=== PATIENT | male | born 1965 | race African-American/Black ===

== ENCOUNTER 2016-06-18 22:33 | Inpatient (IN) | payer SELFPAY ==
[~2016-06-18] VITALS: Ht 175.3 cm; Wt 111.1 kg
[~2016-06-18 22:33] MED LIST: ALBU90AE IH; AMLO10TA80 PO; BLOO-340 MC; FURO40TA5 PO; GLIM4TAB2 PO; IBUP-2029 PO; INSLAN SUBCUT; ISOS1TAB PO; LISI-604 PO; METF-246 PO; SYRI-219 INJ
[2016-06-19] MEDS ORDERED: ACETAMINOPHEN 325MG TABLET PO ONE (00:15)
[2016-06-19 00:33] LABS: BASOPHILS % 0.5 % (0.0-2.0); EOSINOPHILS % 1.3 % (0.0-5.0); HEMATOCRIT. 35.2 % (42.0-52.0); HEMOGLOBIN. 11.7 g/dL (14.0-18.0); LYMPHOCYTES % 16.2 % (20.0-50.0); MEAN CORPUSCULAR HEMOGLOBIN 28.4 pg (28.0-32.0); MEAN CORPUSCULAR HGB CONC 33.3 g/dL (31.0-37.0); MEAN CORPUSCULAR VOLUME 85.4 fL (80.0-94.0); MEAN PLATELET VOLUME 7.9 fl (7.4-10.4); MONOCYTES % 14.8 % (2.0-8.0); NEUTROPHILS % 67.2 % (40.0-76.0); PLATELET 145 x1000/uL (130-400); RED BLOOD CELL COUNT 4.11 mill/uL (4.7-6.1); WHITE BLOOD COUNT 8.5 x1000/uL (4.5-11.0)
[2016-06-19 00:39] LABS: CHLORIDE 103 mEq/L (98-107); INDEX HEMOLYSI 1 (1-3); INDEX ICTERIC 1 (1-4); INDEX LIPEMIC 1 (1-3)
[2016-06-19 00:42] LABS: ALBUMIN 2.8 g/dL (3.4-5.0); ANION GAP 12; CALCIUM 8.5 mg/dL (8.5-10.1); CARBON DIOXIDE 27 mEq/L (21-32)
[2016-06-19 00:46] LABS: ALANINE AMINOTRANSFERASE 24 IU/L (13-61); UREA NITROGEN BLOOD 16 mg/dL (7-21)
[2016-06-19 00:48] LABS: eGFR > 60 mL/min (>60)
[2016-06-19] MEDS ORDERED: ASPIRIN 325MG EC TABLET PO ONE (01:15)
[2016-06-19] MEDS ORDERED: SODIUM CHLORIDE 0.9% 1000ML BAG (SEPSIS BOLUS) IV ONE (01:15)
[2016-06-19] MEDS ORDERED: LEVOFLOXACIN 750MG PREMIX 150 ML IV ONE (01:15)
[2016-06-19] MEDS ORDERED: ONDANSETRON HCL 4MG/2ML VIAL IV PRN (01:30)
[2016-06-19] MEDS ORDERED: IPRATROPIUM/ALBUTEROL 0.5-3(2.5)MG/3ML NEB INH PRN (01:30)
[2016-06-19] MEDS ORDERED: MORPHINE SULFATE 2 MG/ML CPJ (NOT FOR IM USE) IV PRN (01:30)
[2016-06-19] MEDS ORDERED: CLONIDINE 0.1MG TABLET PO PRN (01:30)
[2016-06-19] MEDS ORDERED: ACETAMINOPHEN 325MG TABLET PO PRN (01:30)
[2016-06-19 01:31] LABS: CLARITY URINE CLEAR (CLEAR); COLOR URINE DARK YELLOW (YELLOW); GLUCOSE URINE NEGATIVE (NEGATIVE); KETONES URINE 1+ (NEGATIVE); LEUKOCYTE ESTERASE URINE NEGATIVE (NEGATIVE); NITRITE URINE NEGATIVE (NEGATIVE); OCCULT BLOOD URINE NEGATIVE (NEGATIVE); PH URINE 5.5 (4.5-8.0); PROTEIN URINE 2+ (NEGATIVE); SPECIFIC GRAVITY URINE 1.026 (1.005-1.030)
[2016-06-19 01:37] LABS: TROPONIN I 0.04 ng/mL (0.00-0.04)
[2016-06-19] MEDS ORDERED: FUROSEMIDE 40MG/4ML VIAL IVP ONE (02:00)
[2016-06-19] MEDS ORDERED: POTASSIUM CHLORIDE 20MEQ TABLET SR PO ONE (02:15)
[2016-06-19] MEDS ORDERED: POTASSIUM CHLORIDE 20MEQ TABLET SR PO NR ×2 (02:49→12:20)
[2016-06-19 02:58] LABS: BACTERIA URINE 1+; RBC URINE NONE SEEN /hpf (0-2); SQUAMOUS EPITHELIAL CELL URINE RARE /lpf (RARE/1+); WBC URINE NONE SEEN /hpf (0-2)
[2016-06-19 08:29] LABS: HEMATOCRIT. 36.8 % (42.0-52.0); HEMOGLOBIN. 12.4 g/dL (14.0-18.0); MEAN CORPUSCULAR HEMOGLOBIN 28.5 pg (28.0-32.0); MEAN CORPUSCULAR HGB CONC 33.8 g/dL (31.0-37.0); MEAN CORPUSCULAR VOLUME 84.4 fL (80.0-94.0); MEAN PLATELET VOLUME 7.8 fl (7.4-10.4); PLATELET 154 x1000/uL (130-400); RED BLOOD CELL COUNT 4.36 mill/uL (4.7-6.1); RED CELL DISTRIBUTION WIDTH 13.6 % (11.6-14.6); WHITE BLOOD COUNT 8.1 x1000/uL (4.5-11.0)
[2016-06-19 08:34] LABS: CHLORIDE 102 mEq/L (98-107); DIFFERENTIAL COMMENT 1; INDEX HEMOLYSI 1 (1-3); INDEX ICTERIC 1 (1-4); INDEX LIPEMIC 1 (1-3)
[2016-06-19 08:38] LABS: ANION GAP 9; CALCIUM 8.4 mg/dL (8.5-10.1); CARBON DIOXIDE 31 mEq/L (21-32); UREA NITROGEN BLOOD 16 mg/dL (7-21)
[2016-06-19 08:41] LABS: LDL CHOLESTEROL 116 mg/dL (5-100); TRIGLYCERIDE 75 mg/dL (0-150); eGFR > 60 mL/min (>60)
[2016-06-19 08:42] LABS: HDL CHOLESTEROL 37 mg/dL (40-59)
[2016-06-19] MEDS ORDERED: ISOSORB DINIT/HYDRALAZINE HCL 20/37.5MG TABLET PO SCH (09:00)
[2016-06-19] MEDS ORDERED: FUROSEMIDE 40MG/4ML VIAL IVP SCH (09:00)
[2016-06-19] MEDS ORDERED: INSULIN GLARGINE HUM REC ANLOG 16 UNIT SUBCUT SCH (09:00)
[2016-06-19 09:35] LABS: *AMPHETAMINES SCREEN URINE NEGATIVE (NEGATIVE); *BARBITURATES SCREEN URINE NEGATIVE (NEGATIVE); *BENZODIAZEPINES SCREEN URINE NEGATIVE (NEGATIVE); *COCAINE SCREEN URINE NEGATIVE (NEGATIVE); CANNABINOID URINE SCREEN NEGATIVE (NEGATIVE); ECSTASY MDMA SCREEN URINE NEGATIVE (NEGATIVE); METHADONE URINE SCREEN NEGATIVE (NEGATIVE); OPIATES URINE SCREEN NEGATIVE (NEGATIVE); PHENCYCLIDINE URINE SCREEN NEGATIVE (NEGATIVE)
[2016-06-19 10:07] LABS: PLATELET ESTIMATE NORMAL
[2016-06-19] MEDS ORDERED: DEXTROSE 50% WATER 50ML SYRINGE IV PRN (13:00)
[2016-06-19 13:58] VITALS: BP 159/103
[2016-06-19] MEDS: GLIMEPIRIDE 4MG TABLET PO SCH (15:09)
[2016-06-19] MEDS: LISINOPRIL 20MG TABLET PO SCH ×2 (15:09→21:20)
[2016-06-19] MEDS: AMLODIPINE 10MG TABLET PO SCH (15:09)
[2016-06-19] MEDS: INSULIN DETEMIR UD 100 UNITS/ML SYR SUBCUT SCH (15:12)
[2016-06-19] MEDS: FUROSEMIDE 40MG/4ML VIAL IVP SCH (15:13)
[2016-06-19] MEDS: ENOXAPARIN 40MG/0.4ML SYR SUBCUT SCH (15:28)
[2016-06-19 15:45] LABS: CREATINE KINASE MB FRACTION 1.2 ng/mL (0.5-3.6); TROPONIN I 0.02 ng/mL (0.00-0.04)
[2016-06-19 16:14] VITALS: BP 148/98
[2016-06-19] MEDS: IPRATROPIUM/ALBUTEROL 0.5-3(2.5)MG/3ML NEB HHN SCH ×2 (16:55→20:00)
[2016-06-19] MEDS: INSULIN LISPRO 100 UNITS/ML SUBCUT SCH ×2 (17:14→21:00)
[2016-06-19] MEDS: BLOOD SUGAR DIAGNOSTIC STRIP TEST SCH ×2 (17:14→21:19)
[2016-06-19] MEDS ORDERED: INFLUENZA VIRUS VACCINE 0.5ML SYR IM ONE (17:30)
[2016-06-19] MEDS ORDERED: PNEUMOCOCCAL 23-VAL P-SAC VAC 0.5 ML IM ONE (17:30)
[2016-06-19] MEDS: METFORMIN HCL 500MG TABLET PO SCH (17:34)
[2016-06-19 17:56] LABS: CLARITY URINE CLEAR (CLEAR); COLOR URINE DARK YELLOW (YELLOW); GLUCOSE URINE NEGATIVE (NEGATIVE); KETONES URINE NEGATIVE (NEGATIVE); LEUKOCYTE ESTERASE URINE NEGATIVE (NEGATIVE); NITRITE URINE NEGATIVE (NEGATIVE); OCCULT BLOOD URINE NEGATIVE (NEGATIVE); PH URINE 5.5 (4.5-8.0); PROTEIN URINE 1+ (NEGATIVE); SPECIFIC GRAVITY URINE 1.018 (1.005-1.030)
[2016-06-19 18:24] LABS: BACTERIA URINE TRACE; RBC URINE NONE SEEN /hpf (0-2); SQUAMOUS EPITHELIAL CELL URINE RARE /lpf (RARE/1+); WBC URINE NONE SEEN /hpf (0-2)
[2016-06-19 22:00] VITALS: BP 134/98
[2016-06-19] MEDS ORDERED: LEVOFLOXACIN 500MG PREMIX 100 ML IV SCH (22:00)
[2016-06-19 23:22] LABS: CREATINE KINASE MB FRACTION 1.1 ng/mL (0.5-3.6); TROPONIN I < 0.02 ng/mL (0.00-0.04)
[2016-06-20] VITALS: BP 119/78
[2016-06-20] MEDS: IPRATROPIUM/ALBUTEROL 0.5-3(2.5)MG/3ML NEB HHN SCH ×6 (00:24→21:11)
[2016-06-20 04:00] VITALS: BP 145/91
[2016-06-20 06:02] LABS: BASOPHILS % 0.5 % (0.0-2.0); EOSINOPHILS % 2.5 % (0.0-5.0); HEMATOCRIT. 35.2 % (42.0-52.0); HEMOGLOBIN. 11.8 g/dL (14.0-18.0); LYMPHOCYTES % 18.3 % (20.0-50.0); MEAN CORPUSCULAR HEMOGLOBIN 28.5 pg (28.0-32.0); MEAN CORPUSCULAR HGB CONC 33.6 g/dL (31.0-37.0); MEAN CORPUSCULAR VOLUME 84.9 fL (80.0-94.0); MEAN PLATELET VOLUME 8.5 fl (7.4-10.4); MONOCYTES % 14.2 % (2.0-8.0); NEUTROPHILS % 64.5 % (40.0-76.0); PLATELET 169 x1000/uL (130-400); RED BLOOD CELL COUNT 4.15 mill/uL (4.7-6.1); WHITE BLOOD COUNT 7.2 x1000/uL (4.5-11.0)
[2016-06-20 06:34] LABS: CHLORIDE 104 mEq/L (98-107); INDEX HEMOLYSI 1 (1-3); INDEX ICTERIC 1 (1-4); INDEX LIPEMIC 1 (1-3)
[2016-06-20] MEDS: BLOOD SUGAR DIAGNOSTIC STRIP TEST SCH ×4 (06:35→21:09)
[2016-06-20 06:43] LABS: ANION GAP 14; CALCIUM 8.6 mg/dL (8.5-10.1); CARBON DIOXIDE 27 mEq/L (21-32); UREA NITROGEN BLOOD 19 mg/dL (7-21); eGFR > 60 mL/min (>60)
[2016-06-20] MEDS: INSULIN LISPRO 100 UNITS/ML SUBCUT SCH ×4 (07:48→21:00)
[2016-06-20 08:00] VITALS: BP 149/94
[2016-06-20] MEDS: METFORMIN HCL 500MG TABLET PO SCH ×2 (08:34→18:07)
[2016-06-20] MEDS: ENOXAPARIN 40MG/0.4ML SYR SUBCUT SCH ×2 (08:35→21:03)
[2016-06-20] MEDS: AMLODIPINE 10MG TABLET PO SCH (08:35)
[2016-06-20] MEDS: FUROSEMIDE 40MG/4ML VIAL IVP SCH (08:35)
[2016-06-20] MEDS: LISINOPRIL 20MG TABLET PO SCH ×2 (08:36→21:03)
[2016-06-20] MEDS: GLIMEPIRIDE 4MG TABLET PO SCH (08:36)
[2016-06-20] MEDS: INSULIN DETEMIR UD 100 UNITS/ML SYR SUBCUT SCH (09:36)
[2016-06-20 12:00] VITALS: BP 146/84
[2016-06-20 15:50] VITALS: BP 131/91
[2016-06-20] MEDS ORDERED: MORPHINE SULFATE 2 MG/ML CPJ (NOT FOR IM USE) IV PRN (16:03)
[2016-06-20 20:00] VITALS: BP 132/92
[2016-06-20] MEDS ORDERED: ATORVASTATIN CALCIUM 10MG TABLET PO SCH (21:00)
[2016-06-20] MEDS ORDERED: LEVOFLOXACIN 500MG PREMIX 100 ML IV SCH (22:30)
[2016-06-21] VITALS: BP 133/82
[2016-06-21] MEDS: IPRATROPIUM/ALBUTEROL 0.5-3(2.5)MG/3ML NEB HHN SCH ×4 (01:13→12:59)
[2016-06-21 04:00] VITALS: BP 157/100
[2016-06-21] MEDS: BLOOD SUGAR DIAGNOSTIC STRIP TEST SCH ×2 (06:54→12:01)
[2016-06-21] MEDS: INSULIN LISPRO 100 UNITS/ML SUBCUT SCH ×2 (06:54→12:01)
[2016-06-21 08:00] VITALS: BP 138/83
[2016-06-21] MEDS: FUROSEMIDE 40MG/4ML VIAL IVP SCH (08:57)
[2016-06-21] MEDS: GLIMEPIRIDE 4MG TABLET PO SCH (08:58)
[2016-06-21] MEDS: AMLODIPINE 10MG TABLET PO SCH (08:58)
[2016-06-21] MEDS: LISINOPRIL 20MG TABLET PO SCH (08:58)
[2016-06-21] MEDS: METFORMIN HCL 500MG TABLET PO SCH (08:58)
[2016-06-21] MEDS: ENOXAPARIN 40MG/0.4ML SYR SUBCUT SCH (08:58)
[2016-06-21] MEDS: INSULIN DETEMIR UD 100 UNITS/ML SYR SUBCUT SCH (10:26)
[2016-06-21 12:05] VITALS: BP 132/81
[2016-06-21 15:09] VITALS: BP 138/83
== END 2016-06-21 16:00 | disposition home or self-care (01) | DRG 720 ==
LOC: ER 06-19 00:03 → SUPCPDRO 06-19 01:28 → 6WST 06-19 03:46
PROVIDERS: ADMIT Internal Medicine Nephrology; ATTEND Internal Medicine Nephrology
DX: A41.9 Sepsis, unspecified organism (principal); I11.0 Hypertensive heart disease with heart failure; J18.9 Pneumonia, unspecified organism; E66.01 Morbid (severe) obesity due to excess calories; I50.30 Unspecified diastolic (congestive) heart failure; E11.9 Type 2 diabetes mellitus without complications; D64.9 Anemia, unspecified; E87.6 Hypokalemia; Z68.36 Body mass index [BMI] 36.0-36.9, adult; Z23 Encounter for immunization
CPT/HCPCS: 36415; 71010; 80048; 80053; 80061; 80305; 81001; 82553; 82962; 83036; 83605; 83735; 83880; 84484; 85025; 86850; 86900; 87040; 87086; 90686; 90732; 93005; 93306; 94640; 94664; 96365; 99285; J1650; J1815; J1940; J1956; J7030; J7040; J7620

== ENCOUNTER 2017-11-13 14:25 | Emergency (ER) | payer MEDICAID ==
[~2017-11-13] VITALS: Ht 175.3 cm; Wt 109.0 kg
[~2017-11-13 14:25] MED LIST changes: -METF-246 PO; +METF10004 PO
[2017-11-13 15:15] VITALS: BP 181/86
[2017-11-13 16:28] LABS: BASOPHILS % 0.9 % (0.0-2.0); EOSINOPHILS % 4.4 % (0.0-5.0); HEMATOCRIT. 41.1 % (42.0-52.0); LYMPHOCYTES % 31.2 % (20.0-50.0); MEAN CORPUSCULAR HEMOGLOBIN 29.6 pg (28.0-32.0); MEAN CORPUSCULAR VOLUME 86.9 fL (80.0-94.0); MEAN PLATELET VOLUME 8.5 fl (7.4-10.4); MONOCYTES % 9.8 % (2.0-8.0); NEUTROPHILS % 53.7 % (40.0-76.0); PLATELET 188 x1000/uL (130-400); RED BLOOD CELL COUNT 4.73 mill/uL (4.7-6.1); RED CELL DISTRIBUTION WIDTH 12.7 % (11.6-14.6)
[2017-11-13 16:37] LABS: CHLORIDE 105 mEq/L (98-107)
== END 2017-11-13 23:54 | disposition left against medical advice (07) ==
LOC: ER 14:25
DX: L29.9 Pruritus, unspecified (principal); E11.9 Type 2 diabetes mellitus without complications; I11.0 Hypertensive heart disease with heart failure; I50.9 Heart failure, unspecified
CPT/HCPCS: 36415; 80053; 85025; 99284